=== PATIENT | male | born 1995 | race Caucasian/White ===

== ENCOUNTER 2019-05-19 10:37 | Emergency (ER) | payer OTHER, SELFPAY ==
[2019-05-19 10:56] VITALS: BP 138/94; PULSE 75; RESP 16; TEMP 36.7; O2SAT 98
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
== END 2019-05-19 11:33 | disposition home or self-care (01) ==
PROVIDERS: Emergency Provider Nurse Practitioner Family
DX: K08.89 Other specified disorders of teeth and supporting structures (principal); K04.7 Periapical abscess without sinus; F17.200 Nicotine dependence, unspecified, uncomplicated
CPT/HCPCS: 99213; G0463

== ENCOUNTER 2021-06-03 11:39 | Emergency (ER) | payer OTHER, SELFPAY ==
[2021-06-03 11:50] VITALS: BP 121/90; PULSE 96; RESP 16; TEMP 36.8; O2SAT 98
[2021-06-03] MEDS: diphenhydrAMINE HCl INJ 50 MG/ML VIAL IV PUSH (11:53)
[2021-06-03] MEDS: FAMOTIDINE 20 MG/2 ML VIAL IV PUSH (11:53)
[2021-06-03] MEDS: SODIUM CHLORIDE 0.9% IV 1,000 ML 999 ML IV CONT (11:55)
[2021-06-03] MEDS: methylPREDNISolone SOD SUCC 125 MG VIAL IV PUSH (11:58)
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
[2021-06-03] MEDS: ONDANSETRON INJ 4 MG/2 ML VIAL IV PUSH (13:21)
[2021-06-03 13:25] VITALS: BP 002/70; PULSE 80; RESP 18; O2SAT 98
== END 2021-06-03 13:26 | disposition home or self-care (01) ==
PROVIDERS: Emergency Provider Nurse Practitioner Family
DX: L50.9 Urticaria, unspecified (principal); T78.40XA Allergy, unspecified, initial encounter
CPT/HCPCS: 96361; 96374; 96375; 99284; J1200; J2405; J2765; J2930; J7030